=== PATIENT | female | born 1975 | race African-American/Black ===

== ENCOUNTER 2017-07-13 13:21 | Emergency (ER) | payer OTHER ==
[2017-07-13 14:27] LABS: INFLUENZA A AMPLIFICATION NEGATIVE (NEGATIVE); INFLUENZA B AMPLIFICATION POSITIVE (NEGATIVE)
[2017-07-13] MEDS: ACETAMINOPHEN TAB 650MG DOSE (2X325MG) PO (14:45)
[2017-07-13] MEDS: ONDANSETRON 4 MG ORAL DISINTEGRATING TAB (S0181) PO (14:45)
== END 2017-07-13 14:58 | disposition home or self-care (01) ==
LOC: M ED 13:21
DX: J10.1 Influenza due to other identified influenza virus with other respiratory manifestations (principal)
CPT/HCPCS: 87502